=== PATIENT | male | born 1955 | race African-American/Black ===

== ENCOUNTER 2017-02-08 05:13 | Emergency (ER) | payer SELFPAY ==
[~2017-02-08] VITALS: Ht 175.3 cm; Wt 83.9 kg
[2017-02-08 05:13] VITALS: BP 183/103
[2017-02-08] MEDS ORDERED: NAPR-677 PO (05:34)
[2017-02-08] MEDS ORDERED: ORPH100T PO (05:34)
--- NOTE | 2017-02-08 05:35 | PHYS DOC ---
Past Medical History Past Medical History: Asthma Additional Past Medical Histor: Alcohol use Past Surgical History: No Surgical History Smoking: Cigarettes Alcohol Use: Heavy Adult General Chief Complaint Chief Complaint: LOWEREXTREMITY INJURY HPI HPI Patient is a 61 year old male who presents with pain that starts in his right back and goes down his right leg. It stops in the right lateral lower leg area. Gone for at least a month possibly longer. He states she's containing a markedly this morning. I does drink alcohol daily and this this morning. Does not have a primary care doctor. States he has a inhaler that is used for asthma in the past. Said no recent illness. No fall or trauma. A lot of heavy lifting several years prior. No saddle anesthesia, no bowel bladder incontinence, no weakness or numbness of the lower leg. Review of Systems Review of Systems Constitutional: Denies fever or chills Eyes: Denies change in visual acuity, redness, or eye pain HENT: Denies nasal congestion or sore throat Respiratory: Denies cough or shortness of breath Cardiovascular: No chest pain GI: Denies abdominal pain, nausea, vomiting, bloody stools or diarrhea : Denies dysuria or hematuria Musculoskeletal: POS back pain and right leg pain Integument: Denies rash or skin lesions Neurologic: Denies headache, focal weakness or sensory changes All other systems were reviewed and found to be within normal limits, except as documented in this note. Current Medications Current Medications Current Medications Medications (Trade) Dose Ordered Sig/Marino Start Time Stop Time Status Last Admin Dose Admin Naproxen (Naprosyn) 500 mg 1X ONCE 02/08/17 05:45 02/08/17 05:46 DC Allergies Allergies Allergies Coded Allergies Type Severity Reaction Last Updated Verified No Known Drug Allergies 02/08/17 No Physical Exam Physical Exam Constitutional: Well developed, well nourished, no acute distress, non-toxic appearance. HENT: Normocephalic, atraumatic, bilateral external ears normal, oropharynx moist, no oral exudates, nose normal. Eyes: PERRLA, EOMI, conjunctiva normal, no discharge. Neck: Normal range of motion, no tenderness, supple, no stridor. Cardiovascular:Heart rate regular rhythm, no murmur Lungs & Thorax: Bilateral breath sounds clear to auscultation Abdomen: Bowel sounds normal, soft, no tenderness, no masses, no pulsatile masses. Skin: Warm, dry, no erythema, no rash. Back: POS tenderness right SI joint area, no CVA tenderness. Extremities: No tenderness, no cyanosis, no clubbing, ROM intact, no edema. NVI distally. Reflex 2 + and symmetrical Neurologic: Alert and oriented X 3, normal motor function, normal sensory function, no focal deficits noted. Psychologic: Affect normal, judgement normal, mood normal. Current Patient Data Vital Signs Vital Signs Date Time Temp Pulse Resp B/P (MAP) Pulse Ox O2 Delivery O2 Flow Rate FiO2 02/08/17 05:13 98.1 94 18 95 Room Air 98.1 Course & Med Decision Making Course & Med Decision Making Patient's findings are consistent with sciatica and radiculopathy. He has no evidence of acute neurological compromise at this time and no evidence of cauda equina syndrome. This is been ongoing for quite some time. Given referral to [facility] [place]. Dosed here with Naprosyn. Prescriptions for Naprosyn and Norflex written for. Given return follow up precautions. Given Rx for Lisinopril to start. I have spoken with the patient and/or caregivers. I have explained the patient' s condition, diagnosis and treatment plan based on the information available to me at this time. I have answered the patient's and/or caregiver's questions and addressed any concerns. The patient and/or caregivers have as good an understanding of the patient's diagnosis, condition and treatment plan as can be expected at this point. The patient's condition is stable and appropriate for discharge from the emergency department. The patient will pursue further outpatient evaluation with the primary care physician or other designated or consulting physician as outlined in the discharge instructions. The patient and/or caregivers are agreeable to this plan of care and follow-up instructions have been explained in detail. The patient and/or caregivers have received these instructions in written format and have expressed an understanding of the discharge instructions. The patient and/or caregivers are aware that any significant change in condition or worsening of symptoms should prompt an immediate return to this or the closest emergency department or a call to 911. Joan Disclaimer Veneciaon Disclaimer This electronic medical record was generated, in whole or in part, using a voice recognition dictation system. Departure Departure Impression: Primary Impression: Sciatica of right side Disposition: HOME, SELF-CARE Condition: STABLE Referrals: NO PCP (PCP) Patient Instructions: Sciatica Additional Instructions: YOUR BLOOD PRESSURE WAS ELEVATED HERE; YOU NEED TO CALL ONE OF THE CLINICS ON THE LIST PROVIDED AND HAVE A RECHECK DONE. YOU WERE GIVEN A PRESCRIPTION OF BLOOD PRESSURE MEDICATION TO START. Scripts Lisinopril (LISINOPRIL) 10 Mg Tablet 1 TAB PO DAILY, #30 TAB 5 Refills Prov: SADE CISSE MD 02/08/17 Naproxen Sodium (NAPROXEN SODIUM) 550 Mg Tablet 1 TAB PO BID, #30 TAB Prov: SADE CISSE MD 02/08/17 Orphenadrine Citrate (ORPHENADRINE CITRATE) 100 Mg Tablet.er 1 TAB PO BID, #20 TAB 1 Refill Prov: SADE CISSE MD 02/08/17 SADE CISSE MD Feb 08, 2017 05:35
[2017-02-08] MEDS ORDERED: NAPROXEN 500 MG TABLET PO ONE (05:45)
[2017-02-08] MEDS ORDERED: LISI10TA2 PO (06:00)
== END 2017-02-08 06:13 | disposition home or self-care (01) ==
LOC: ER 05:13
DX: M54.41 Lumbago with sciatica, right side (principal); J45.909 Unspecified asthma, uncomplicated; F17.210 Nicotine dependence, cigarettes, uncomplicated; F12.10 Cannabis abuse, uncomplicated; Z79.899 Other long term (current) drug therapy
CPT/HCPCS: 99283